=== PATIENT | female | born 1930 | race Caucasian/White ===

== ENCOUNTER → 2016-12-29 | Outpatient (CLI) | payer MEDICARE, OTHER ==
[~2016-12-29] MED LIST: COLESTID1 GM PO; FLAGYL500 MG PO; PAXIL10 MG PO; TYLENOL325 MG PO; ZITHROMAX250 MG PO
== END | disposition disaster alternative care site (69) ==
LOC: GRAD 07:52
DX: R10.9 Unspecified abdominal pain (principal); K57.12 Diverticulitis of small intestine without perforation or abscess without bleeding; K44.9 Diaphragmatic hernia without obstruction or gangrene; Q40.2 Other specified congenital malformations of stomach